=== PATIENT | female | born 1965 | race Caucasian/White ===

== ENCOUNTER 2018-08-05 08:14 | Inpatient (IN) | payer OTHER ==
[2018-08-05] MEDS: CEFAZOLIN 1 GM/50 ML (PMX) 50 ML IVPB (06:00)
[2018-08-05] MEDS: SOD CHLORIDE 0.9% 1,000 ML IV (06:00)
[2018-08-05] MEDS ORDERED: SUCCINYLCHOLINE CHLORIDE 100 MG/5 ML SYG IV (09:12)
[2018-08-05] MEDS ORDERED: LIDOCAINE 2% (SDV) 5 ML INJ (09:12)
[2018-08-05] MEDS ORDERED: MIDAZOLAM 1 MG/ML 2 ML INJ (09:12)
[2018-08-05] MEDS ORDERED: PROPOFOL 20 ML ×2 (09:12→11:38)
[2018-08-05] MEDS ORDERED: CEFAZOLIN 1 GM INJ (09:12)
[2018-08-05] MEDS ORDERED: HYDROmorphONE 2 MG/ML SYG (09:16)
[2018-08-05] MEDS ORDERED: LIDOCAINE 4% (MPF) 5 ML INJ (09:17)
[2018-08-05] MEDS ORDERED: PROPOFOL 40 ML (09:52)
[2018-08-05] MEDS ORDERED: DEXAMETHASONE 4 MG/ML 5 ML INJ (10:33)
[2018-08-05] MEDS ORDERED: METOCLOPRAMIDE 10 MG INJ (10:33)
[2018-08-05] MEDS ORDERED: ONDANSETRON 4 MG INJ (10:33)
[2018-08-05] MEDS ORDERED: FAMOTIDINE 20 MG INJ (10:33)
[2018-08-05] MEDS ORDERED: EPHEDrine 25 MG/5 ML SYG (10:49)
[2018-08-05] MEDS ORDERED: MEPERIDINE 25 MG INJ IV (11:30)
[2018-08-05] MEDS ORDERED: OXYCODONE/ACETAMINOPHEN (5/325) TAB PO ×2 (11:30)
[2018-08-05] MEDS ORDERED: MIDAZOLAM 1 MG/ML 2 ML INJ IV (11:30)
[2018-08-05] MEDS ORDERED: ONDANSETRON 4 MG INJ IV (11:30)
[2018-08-05] MEDS ORDERED: ALBUTEROL 0.083% (NEB) 2.5 MG/3 ML AMP HHN (11:30)
[2018-08-05] MEDS ORDERED: HYDROmorphONE 1 MG/5 ML IV SYRINGE IV ×3 (11:30)
[2018-08-05] MEDS ORDERED: hydrALAzine 20 MG INJ IV ×2 (11:30→17:00)
[2018-08-05] MEDS: ACETAMINOPHEN 1000MG/100ML IV 100 ML IVPB ×2 (14:52→21:52)
[2018-08-05] MEDS: ONDANSETRON 4 MG INJ IV (16:06)
[2018-08-05] MEDS: morphine 2 MG INJ IV ×3 (16:06→23:15)
[2018-08-05] MEDS ORDERED: ALBUTEROL/IPRATROPIUM (NEB) 3 ML AMP HHN (17:00)
[2018-08-05 18:31] LABS: CALCIUM 9.8 mg/dl (8.4-10.2)
[2018-08-05] MEDS: D5W-0.45 NACL + KCL 20 MEQ 1,000 ML IV ×2 (20:13→21:47)
[2018-08-05] MEDS: PROPRANOLOL 10 MG TAB PO (20:18)
[2018-08-05] MEDS: ATORVASTATIN 20 MG TAB PO (20:23)
[2018-08-06] MEDS: morphine 2 MG INJ IV (00:38)
[2018-08-06 01:33] LABS: CALCIUM 8.6 mg/dl (8.4-10.2)
[2018-08-06 05:04] LABS: ADD MAN DIFF? NO
[2018-08-06 05:11] LABS: BASOPHILS % 0.2 % (0.0-2.0); HEMOGLOBIN 12.9 g/dl (12.0-16.0); LYMPHOCYTES # 1.1 10^3/ul (0.8-2.9); LYMPHOCYTES % 10.1 % (15.0-51.0); MEAN CORPUSCULAR HEMOGLOBIN 26.7 pg (29.0-33.0); MEAN CORPUSCULAR HGB CONC 32.3 g/dl (32.0-37.0); MEAN CORPUSCULAR VOLUME 82.6 fl (82.0-101.0); MEAN PLATELET VOLUME 9.6 fl (7.4-10.4); MONOCYTE # 1.2 10^3/ul (0.3-0.9); MONOCYTES % 11.3 % (0.0-11.0); NEUTROPHIL # 8.5 10^3/ul (1.6-7.5); PLATELET COUNT 327 10^3/UL (140-415); RED BLOOD COUNT 4.84 10^6/ul (4.20-5.40); RED CELL DISTRIBUTION WIDTH 15.5 % (11.5-14.5)
[2018-08-06 05:11] LABS: WHITE BLOOD COUNT 10.8 10^3/ul (4.8-10.8)
[2018-08-06 05:26] LABS: ANION GAP 9 (5-13); BLOOD UREA NITROGEN 12 mg/dl (7-20); CALCIUM 8.6 mg/dl (8.4-10.2); CARBON DIOXIDE 23 mmol/L (21-31); CHLORIDE 106 mmol/L (97-110); CREATININE 0.66 mg/dl (0.44-1.00); Estimated GFR > 60 mL/min (>60); GLUCOSE 125 mg/dl (70-220); POTASSIUM 4.8 mmol/L (3.5-5.1); SODIUM 138 mmol/L (135-144)
[2018-08-06 05:31] LABS: CALCIUM 8.8 mg/dl (8.4-10.2)
[2018-08-06] MEDS: D5W-0.45 NACL + KCL 20 MEQ 1,000 ML IV ×3 (05:44→21:47)
[2018-08-06] MEDS: PROPRANOLOL 10 MG TAB PO ×2 (08:50→21:09)
[2018-08-06] MEDS: CHOLECALCIFEROL 2,000 UNIT CAP PO (08:50)
[2018-08-06] MEDS: LOSARTAN 50 MG TAB PO (08:50)
[2018-08-06] MEDS ORDERED: NON-FORMULARY/PATIENT OWN MED (Cholecalciferol (Vitamin D3) (Vitamin D-3) 1 TAB) ORAL (09:00)
[2018-08-06] MEDS: RANITIDINE 150 MG TAB PO ×2 (14:41→21:06)
[2018-08-06 16:20] LABS: CALCIUM 8.9 mg/dl (8.4-10.2)
[2018-08-06] MEDS: ACETAMINOPHEN 500 MG TAB PO (18:49)
[2018-08-06] MEDS ORDERED: ACETAMINOPHEN 500 MG TAB PO (19:00)
[2018-08-06] MEDS: ATORVASTATIN 20 MG TAB PO (21:06)
[2018-08-07] MEDS: ACETAMINOPHEN 500 MG TAB PO (03:23)
[2018-08-07 05:25] LABS: ADD MAN DIFF? NO
[2018-08-07 05:30] LABS: BASOPHILS % 0.5 % (0.0-2.0); EOSINOPHILS % 0.4 % (0.0-7.0); HEMATOCRIT 36.5 % (37.0-47.0); HEMOGLOBIN 11.7 g/dl (12.0-16.0); LYMPHOCYTES # 3.1 10^3/ul (0.8-2.9); LYMPHOCYTES % 39.3 % (15.0-51.0); MEAN CORPUSCULAR HEMOGLOBIN 26.9 pg (29.0-33.0); MEAN CORPUSCULAR HGB CONC 32.1 g/dl (32.0-37.0); MEAN CORPUSCULAR VOLUME 83.9 fl (82.0-101.0); MONOCYTE # 0.8 10^3/ul (0.3-0.9); MONOCYTES % 10.5 % (0.0-11.0); NEUTROPHIL # 3.9 10^3/ul (1.6-7.5); PLATELET COUNT 296 10^3/UL (140-415); RED BLOOD COUNT 4.35 10^6/ul (4.20-5.40); RED CELL DISTRIBUTION WIDTH 16.1 % (11.5-14.5)
[2018-08-07 05:30] LABS: WHITE BLOOD COUNT 7.9 10^3/ul (4.8-10.8)
[2018-08-07] MEDS: D5W-0.45 NACL + KCL 20 MEQ 1,000 ML IV (05:39)
[2018-08-07 05:55] LABS: ANION GAP 7 (5-13); BLOOD UREA NITROGEN 15 mg/dl (7-20); CALCIUM 8.9 mg/dl (8.4-10.2); CARBON DIOXIDE 24 mmol/L (21-31); CHLORIDE 111 mmol/L (97-110); Estimated GFR > 60 mL/min (>60); GLUCOSE 91 mg/dl (70-220); POTASSIUM 4.3 mmol/L (3.5-5.1); SODIUM 142 mmol/L (135-144)
[2018-08-07] MEDS: PROPRANOLOL 10 MG TAB PO (08:24)
[2018-08-07] MEDS: LOSARTAN 50 MG TAB PO (08:24)
[2018-08-07] MEDS: CHOLECALCIFEROL 2,000 UNIT CAP PO (08:25)
[2018-08-07] MEDS: RANITIDINE 150 MG TAB PO (08:25)
== END 2018-08-07 15:05 | disposition home or self-care (01) | DRG 626 ==
LOC: REC 08:14 → MS1 14:15
PROVIDERS: Surgery Surgical Oncology
PROC: 0GTK0ZZ Resection of Thyroid Gland, Open Approach (ICD-10-PCS; principal; 2018-08-05 10:10)
PROC: 07B20ZX Excision of Left Neck Lymphatic, Open Approach, Diagnostic (ICD-10-PCS; 2018-08-05 10:10)
PROC: 0GTP0ZZ Resection of Left Inferior Parathyroid Gland, Open Approach (ICD-10-PCS; 2018-08-05 10:10)
DX: C73 Malignant neoplasm of thyroid gland (principal); C77.0 Secondary and unspecified malignant neoplasm of lymph nodes of head, face and neck; D35.1 Benign neoplasm of parathyroid gland; I10 Essential (primary) hypertension; E78.5 Hyperlipidemia, unspecified
CPT/HCPCS: 80048; 82310; 84703; 85025; 88305